=== PATIENT | male | born 1985 | race Caucasian/White ===

== ENCOUNTER 2019-09-21 08:06 | Emergency (ER) | payer MEDICAID ==
[~2019-09-21] VITALS: Ht 177.8 cm; Wt 100.0 kg
[2019-09-21] MEDS ORDERED: SODIUM CHLORIDE 0.9% 1,000 ML IV ONE (08:56)
[2019-09-21] MEDS ORDERED: ONDANSETRON HCL 4MG/2ML INJ IV STA (08:56)
[2019-09-21] MEDS ORDERED: OCTREOTIDE 1,000 MCG in SODIUM CHLORIDE 0.9% 100 ML IV STA (08:56)
[2019-09-21] MEDS ORDERED: PANTOPRAZOLE SODIUM 40 MG/VIAL IV STA (08:56)
[2019-09-21] MEDS ORDERED: OCTREOTIDE ACETATE 50 MCG/ML 1ML IV STA (08:56)
[2019-09-21] MEDS ORDERED: PANTOPRAZOLE 80 MG in SODIUM CHLORIDE 0.9% 100 ML IV STA (08:56)
[2019-09-21 08:57] VITALS: BP 98/41
== END 2019-09-21 09:57 | disposition left against medical advice (07) ==
LOC: ER 08:06 → CANBEDREQ 15:49
DX: K92.2 Gastrointestinal hemorrhage, unspecified (principal); I10 Essential (primary) hypertension
CPT/HCPCS: 99283; J7030; C9113; J2354; J7050